=== PATIENT | female | born 1945 | race Caucasian/White ===

== ENCOUNTER 2022-05-13 11:59 | Emergency (ER) | payer MEDICARE ==
[~2022-05-13] VITALS: Ht 165.1 cm; Wt 68.0 kg
--- NOTE | 2022-05-13 12:00 | NUR ---
WALKED IN C/O LEFT TOE NUMBNESS AND LEFT LEG SWELLING ONSET 1 DAY. DENIES FALL OR TRAUMA. AAOX4, AMBULATORY, DENIES CP OR SOB. VITALS STABLE. ON MONITOR. PMH: PACEMAKER 4 YRS AGO YOVANY
[2022-05-13 12:07] VITALS: BP 135/82
[2022-05-13 12:38] VITALS: BP 135/82
--- NOTE | 2022-05-13 12:40 | NUR ---
us at bedside
--- NOTE | 2022-05-13 13:23 | NUR ---
Patient discharged with v/s stable. Written and verbal after care instructions given and explained. Patient verbalized understanding. Ambulatory with steady gait. All questions addressed prior to discharge. Advised to follow up with PMD.
== END 2022-05-13 13:23 | disposition home or self-care (01) ==
LOC: MED 11:59
DX: G62.9 Polyneuropathy, unspecified (principal); Z95.0 Presence of cardiac pacemaker
CPT/HCPCS: 93971; 99284; Q0092